=== PATIENT | male | born 1995 | race African-American/Black ===

== ENCOUNTER 2018-03-23 07:03 | Emergency (ER) | payer MEDICAID ==
[~2018-03-23] VITALS: Ht 185.4 cm; Wt 81.0 kg
[2018-03-23 07:37] VITALS: BP 119/74
[2018-03-23] MEDS ORDERED: AMOXICILLIN/POTASSIUM CLAVULANATE 875/125MG TAB PO ONE (08:00)
== END 2018-03-23 08:13 | disposition left against medical advice (07) ==
LOC: ER 07:03
DX: M79.641 Pain in right hand (principal); Y04.1XXA Assault by human bite, initial encounter; Y93.89 Activity, other specified; Y92.89 Other specified places as the place of occurrence of the external cause; Y99.8 Other external cause status
CPT/HCPCS: 29130; 99283

== ENCOUNTER 2018-12-04 00:57 | Emergency (ER) | payer MEDICAID ==
[~2018-12-04] VITALS: Ht 177.8 cm; Wt 77.0 kg
[2018-12-04] MEDS ORDERED: ACETAMINOPHEN 325MG TABLET PO ONE (02:00)
[2018-12-04 03:34] VITALS: BP 122/49
== END 2018-12-04 03:38 | disposition home or self-care (01) ==
LOC: ER 00:57
DX: R07.89 Other chest pain (principal); V49.49XA Driver injured in collision with other motor vehicles in traffic accident, initial encounter; Y93.89 Activity, other specified; Y92.89 Other specified places as the place of occurrence of the external cause; Y99.8 Other external cause status
CPT/HCPCS: 71045; 99283

== ENCOUNTER 2020-01-05 21:55 | Emergency (ER) | payer MEDICAID ==
[~2020-01-05] VITALS: Ht 188 cm; Wt 77.5 kg
[2020-01-05 22:30] VITALS: BP 129/74
== END 2020-01-05 22:57 | disposition left against medical advice (07) ==
LOC: ER 21:55
DX: S31.000A Unspecified open wound of lower back and pelvis without penetration into retroperitoneum, initial encounter (principal); R10.9 Unspecified abdominal pain; W33.01XA Accidental discharge of shotgun, initial encounter; Y93.89 Activity, other specified; Y92.89 Other specified places as the place of occurrence of the external cause; Y99.8 Other external cause status
CPT/HCPCS: 99281

== ENCOUNTER 2020-01-05 22:51 | Emergency (ER) | payer MEDICAID ==
[~2020-01-05] VITALS: Ht 188 cm; Wt 77.5 kg
[2020-01-05] MEDS ORDERED: KETOROLAC 30MG/ML VIAL IV STA (23:28)
[2020-01-05] MEDS ORDERED: ONDANSETRON HCL 4MG/2ML INJ IV STA (23:28)
[2020-01-05] MEDS ORDERED: MORPHINE SULFATE 4 MG/ML CPJ (NOT FOR IM USE) IV STA (23:28)
[2020-01-05] MEDS ORDERED: SODIUM CHLORIDE 0.9% 1,000 ML IV ONE (23:28)
[2020-01-06 00:02] LABS: BASOPHILS % 1.2 % (0.0-2.0); EOSINOPHILS % 1.5 % (0.0-5.0); HEMATOCRIT. 33.9 % (42.0-52.0); HEMOGLOBIN. 11.8 g/dL (14.0-18.0); LYMPHOCYTES % 18.3 % (20.0-50.0); MEAN CORPUSCULAR HEMOGLOBIN 31.7 pg (28.0-32.0); MEAN CORPUSCULAR VOLUME 91.1 fL (80.0-94.0); MEAN PLATELET VOLUME 6.3 fl (7.4-10.4); MONOCYTES % 8.6 % (2.0-8.0); NEUTROPHILS % 70.4 % (40.0-76.0); PLATELET 639 x1000/uL (130-400); RED BLOOD CELL COUNT 3.72 mill/uL (4.7-6.1); RED CELL DISTRIBUTION WIDTH 13.3 % (11.6-14.6)
[2020-01-06 00:07] LABS: CHLORIDE 103 mEq/L (98-107)
[2020-01-06 00:15] LABS: ETHANOL BLOOD < 10 mg/dL
[2020-01-06 00:16] LABS: *AMPHETAMINES SCREEN URINE NEGATIVE (NEGATIVE); *BARBITURATES SCREEN URINE NEGATIVE (NEGATIVE)
[2020-01-06 00:17] LABS: *BENZODIAZEPINES SCREEN URINE NEGATIVE (NEGATIVE); *COCAINE SCREEN URINE PRESUMTIVE POSITIVE (NEGATIVE); CANNABINOID URINE SCREEN NEGATIVE (NEGATIVE); PHENCYCLIDINE URINE SCREEN NEGATIVE (NEGATIVE)
[2020-01-06 00:18] LABS: METHADONE URINE SCREEN NEGATIVE (NEGATIVE)
[2020-01-06 01:00] VITALS: BP 137/72
[2020-01-09 09:12] LABS: OPIATES URINE SCREEN PRESUMTIVE POSITIVE (NEGATIVE)
== END 2020-01-06 02:00 | disposition home or self-care (01) ==
LOC: ER 22:51
DX: R10.9 Unspecified abdominal pain (principal); J90 Pleural effusion, not elsewhere classified; Z98.890 Other specified postprocedural states
CPT/HCPCS: 36415; 71045; 74176; 80053; 80305; 80320; 83690; 84484; 85025; 96374; 96375; 99285; J1885; J2270; J2405; J7030; Z7610; G0480

== ENCOUNTER 2020-03-12 13:29 | Emergency (ER) | payer MEDICAID ==
[~2020-03-12] VITALS: Ht 180.3 cm; Wt 70.0 kg
[2020-03-12] MEDS ORDERED: HYDROCODONE/ACETAMINOPHEN 5/325MG TABLET PO ONE (13:45)
[2020-03-12] MEDS ORDERED: ONDANSETRON 4MG ODT PO ONE (13:45)
[2020-03-12 14:32] VITALS: BP 152/52
== END 2020-03-12 14:35 | disposition home or self-care (01) ==
LOC: ER 13:31
DX: S99.922A Unspecified injury of left foot, initial encounter (principal); Z87.09 Personal history of other diseases of the respiratory system; W33.01XA Accidental discharge of shotgun, initial encounter; Y93.89 Activity, other specified; Y92.89 Other specified places as the place of occurrence of the external cause; Y99.8 Other external cause status
CPT/HCPCS: 73630; 99283; Q0162; Z7610

== ENCOUNTER 2021-01-03 17:40 | Emergency (ER) | payer MEDICAID ==
[~2021-01-03] VITALS: Ht 175.3 cm; Wt 73.0 kg
[2021-01-03 18:09] VITALS: BP 128/92
== END 2021-01-03 19:57 | disposition home or self-care (01) ==
LOC: ER 17:40
DX: S99.922A Unspecified injury of left foot, initial encounter (principal); R10.9 Unspecified abdominal pain; X58.XXXA Exposure to other specified factors, initial encounter; Y93.89 Activity, other specified; Y92.89 Other specified places as the place of occurrence of the external cause; Y99.8 Other external cause status
CPT/HCPCS: 73660; 74018; 99284; Z7610

== ENCOUNTER 2021-06-03 21:36 | Inpatient (IN) | payer MEDICAID ==
[~2021-06-03] VITALS: Ht 185.4 cm; Wt 78.0 kg
[2021-06-04 01:43] LABS: HEMATOCRIT. 41.4 % (42.0-52.0); HEMOGLOBIN. 14.4 g/dL (14.0-18.0); MEAN CORPUSCULAR HEMOGLOBIN 31.1 pg (28.0-32.0); MEAN CORPUSCULAR VOLUME 89.1 fL (80.0-94.0); MEAN PLATELET VOLUME 7.3 fl (7.4-10.4); PLATELET 291 x1000/uL (130-400); RED BLOOD CELL COUNT 4.64 mill/uL (4.7-6.1); RED CELL DISTRIBUTION WIDTH 14.1 % (11.6-14.6)
[2021-06-04] MEDS ORDERED: KETOROLAC 15MG/ML VIAL IV ONE (01:45)
[2021-06-04 01:48] LABS: CHLORIDE 100 mEq/L (98-107)
[2021-06-04 01:48] LABS: CLARITY URINE CLOUDY (CLEAR); COLOR URINE YELLOW (YELLOW); KETONES URINE NEGATIVE (NEGATIVE); LEUKOCYTE ESTERASE URINE 3+ (NEGATIVE); NITRITE URINE POSITIVE (NEGATIVE); OCCULT BLOOD URINE 2+ (NEGATIVE); PROTEIN URINE 1+ (NEGATIVE); SPECIFIC GRAVITY URINE 1.013 (1.005-1.030); UROBILINOGEN URINE 0.2 E.U./dL (0.2-1.0)
[2021-06-04 02:13] LABS: PLATELET ESTIMATE NORMAL
[2021-06-04] MEDS ORDERED: CEFTRIAXONE 1 G PREMIX 50 ML IV ONE (02:15)
[2021-06-04] MEDS ORDERED: ONDANSETRON HCL 4MG/2ML INJ IV ONE (03:00)
[2021-06-04] MEDS ORDERED: MORPHINE SULFATE 4 MG/ML CPJ (NOT FOR IM USE) IV ONE (03:00)
[2021-06-04] MEDS ORDERED: GUAIFENESIN 200MG/10ML SUGAR FREE UDC PO PRN (07:00)
[2021-06-04] MEDS ORDERED: MAGNESIUM/ALUMINUM HYDROXIDE/SIMETHICONE 30ML UDC PO PRN (07:00)
[2021-06-04] MEDS ORDERED: HYDRALAZINE 20MG/ML VIAL IV PRN (07:00)
[2021-06-04] MEDS ORDERED: IPRATROPIUM/ALBUTEROL 0.5-3(2.5)MG/3ML NEB HHN PRN (07:00)
[2021-06-04] MEDS ORDERED: DOCUSATE SODIUM 100MG CAPSULE PO PRN (07:00)
[2021-06-04] MEDS ORDERED: ACETAMINOPHEN 325MG TABLET PO PRN (07:00)
[2021-06-04] MEDS ORDERED: ONDANSETRON HCL 4MG/2ML INJ IV PRN (07:00)
[2021-06-04] MEDS ORDERED: CLONIDINE 0.1MG TABLET PO PRN (07:00)
[2021-06-04] MEDS ORDERED: LORAZEPAM 2MG/ML CPJ IV PRN (07:00)
[2021-06-04] MEDS ORDERED: DIPHENHYDRAMINE 50MG/ML VIAL IV PRN (07:00)
[2021-06-04] MEDS ORDERED: CEFTRIAXONE 1 G PREMIX 50 ML IV SCH (07:00)
[2021-06-04] MEDS ORDERED: NALOXONE HCL 0.4MG/ML VIAL IV PRN (07:30)
[2021-06-04] MEDS: SODIUM CHLORIDE 0.45% 1,000 ML IV SCH ×2 (07:56→17:00)
[2021-06-04] MEDS: ENOXAPARIN 40MG/0.4ML SYR SUBCUT SCH (09:43)
[2021-06-04] MEDS: HYDROCODONE/ACETAMINOPHEN 10/325MG TABLET PO PRN ×3 (09:47→18:24)
[2021-06-04] MEDS ORDERED: HYDRALAZINE 10 MG in SODIUM CHLORIDE 0.9% 49.5 ML IV PRN (10:00)
[2021-06-04 10:50] VITALS: BP 115/52
[2021-06-04 12:00] VITALS: BP 115/61
[2021-06-04 14:11] VITALS: BP 115/52
[2021-06-04] MEDS ORDERED: IBUP-2029 PO (14:34)
[2021-06-04] MEDS ORDERED: HYDR-4009 PO (14:34)
[2021-06-04 16:00] VITALS: BP 116/61
[2021-06-04 20:00] VITALS: BP 109/57
[2021-06-04] MEDS ORDERED: HYDROCODONE/ACETAMINOPHEN 10/325MG TABLET PO PRN (21:00)
[2021-06-04] MEDS ORDERED: MORPHINE SULFATE 2 MG/ML CPJ (NOT FOR IM USE) IV PRN (21:00)
[2021-06-04] MEDS: SODIUM CHLORIDE 0.9% INJ 3ML FLUSH IVF SCH ×2 (21:21→21:30)
[2021-06-04] MEDS ORDERED: CEFTRIAXONE 1,000 MG in DEXTROSE 5% WATER 50 ML IV SCH (22:00)
[2021-06-05 00:05] LABS: *AMPHETAMINES SCREEN URINE NEGATIVE (NEGATIVE); *BARBITURATES SCREEN URINE NEGATIVE (NEGATIVE); *BENZODIAZEPINES SCREEN URINE NEGATIVE (NEGATIVE); *COCAINE SCREEN URINE PRESUMTIVE POSITIVE (NEGATIVE); METHADONE URINE SCREEN NEGATIVE (NEGATIVE); OPIATES URINE SCREEN PRESUMTIVE POSITIVE (NEGATIVE)
[2021-06-05 00:07] LABS: CANNABINOID URINE SCREEN NEGATIVE (NEGATIVE); PHENCYCLIDINE URINE SCREEN NEGATIVE (NEGATIVE)
[2021-06-05] MEDS: HYDROCODONE/ACETAMINOPHEN 10/325MG TABLET PO PRN ×3 (02:12→15:15)
[2021-06-05] MEDS: SODIUM CHLORIDE 0.45% 1,000 ML IV SCH ×2 (02:16→13:00)
[2021-06-05 04:00] VITALS: BP 123/64
[2021-06-05] MEDS: SODIUM CHLORIDE 0.9% INJ 3ML FLUSH IVF SCH ×2 (06:52→14:00)
[2021-06-05 07:23] LABS: HEMATOCRIT. 39.2 % (42.0-52.0); HEMOGLOBIN. 13.3 g/dL (14.0-18.0); MEAN CORPUSCULAR VOLUME 88.2 fL (80.0-94.0); MEAN PLATELET VOLUME 8.1 fl (7.4-10.4); PLATELET 233 x1000/uL (130-400); RED BLOOD CELL COUNT 4.44 mill/uL (4.7-6.1); RED CELL DISTRIBUTION WIDTH 14.2 % (11.6-14.6)
[2021-06-05 08:00] VITALS: BP 120/63
[2021-06-05 08:17] LABS: CHLORIDE 106 mEq/L (98-107)
[2021-06-05 10:07] LABS: PLATELET ESTIMATE NORMAL
[2021-06-05] MEDS: ENOXAPARIN 40MG/0.4ML SYR SUBCUT SCH (11:07)
[2021-06-05 12:00] VITALS: BP 127/65
[2021-06-05 16:00] VITALS: BP 119/55
== END 2021-06-05 17:30 | disposition left against medical advice (07) | DRG 463 ==
LOC: ER 21:36 → MICUSO 06-04 03:44 → 6EST 06-04 09:55
PROVIDERS: ADMIT Internal Medicine; ATTEND Internal Medicine
DX: N39.0 Urinary tract infection, site not specified (principal); E87.1 Hypo-osmolality and hyponatremia; N28.1 Cyst of kidney, acquired; F14.90 Cocaine use, unspecified, uncomplicated; R74.01 Elevation of levels of liver transaminase levels; Z53.29 Procedure and treatment not carried out because of patient's decision for other reasons; Z93.6 Other artificial openings of urinary tract status; Z79.899 Other long term (current) drug therapy
CPT/HCPCS: 36415; 74176; 80053; 80305; 81003; 83605; 85025; 87077; 87186; 93005; 99285; J0696; J1650; J1885; J2270; J2405; J7060

== ENCOUNTER 2021-06-12 01:12 | Emergency (ER) | payer MEDICAID ==
[~2021-06-12] VITALS: Ht 185.4 cm; Wt 78.0 kg
[~2021-06-12 01:12] MED LIST: HYDR-4009 PO; IBUP-2029 PO
[2021-06-12] MEDS ORDERED: ONDANSETRON HCL 4MG/2ML INJ IV STA (02:05)
[2021-06-12] MEDS ORDERED: MORPHINE SULFATE 4 MG/ML CPJ (NOT FOR IM USE) IV STA (02:05)
[2021-06-12 02:35] LABS: BASOPHILS % 0.4 % (0.0-2.0); EOSINOPHILS % 1.1 % (0.0-5.0); HEMATOCRIT. 39.9 % (42.0-52.0); HEMOGLOBIN. 13.6 g/dL (14.0-18.0); LYMPHOCYTES % 36.4 % (20.0-50.0); MEAN CORPUSCULAR HEMOGLOBIN 30.2 pg (28.0-32.0); MEAN CORPUSCULAR VOLUME 88.5 fL (80.0-94.0); MEAN PLATELET VOLUME 7.8 fl (7.4-10.4); MONOCYTES % 8.4 % (2.0-8.0); NEUTROPHILS % 53.7 % (40.0-76.0); PLATELET 297 x1000/uL (130-400); RED BLOOD CELL COUNT 4.51 mill/uL (4.7-6.1); RED CELL DISTRIBUTION WIDTH 13.9 % (11.6-14.6)
[2021-06-12 02:40] LABS: CHLORIDE 106 mEq/L (98-107)
[2021-06-12 02:45] LABS: CLARITY URINE CLOUDY (CLEAR); COLOR URINE YELLOW (YELLOW); KETONES URINE TRACE (NEGATIVE); LEUKOCYTE ESTERASE URINE 3+ (NEGATIVE); NITRITE URINE POSITIVE (NEGATIVE); OCCULT BLOOD URINE 2+ (NEGATIVE); PROTEIN URINE 1+ (NEGATIVE)
[2021-06-12] MEDS ORDERED: CEFTRIAXONE 1 G PREMIX 50 ML IV ONE (03:00)
[2021-06-12] MEDS ORDERED: CEPH500C2 MT (03:28)
[2021-06-12] MEDS ORDERED: T3 PO (03:28)
[2021-06-12 04:14] VITALS: BP 115/65
== END 2021-06-12 04:15 | disposition home or self-care (01) ==
LOC: ER 01:12
DX: N12 Tubulo-interstitial nephritis, not specified as acute or chronic (principal); Z87.448 Personal history of other diseases of urinary system; Z87.828 Personal history of other (healed) physical injury and trauma; Z96.0 Presence of urogenital implants
CPT/HCPCS: 36415; 80053; 81003; 85025; 96365; 96375; 99284; J0696; J2270; J2405